=== PATIENT | male | born 1965 | race Caucasian/White ===

== ENCOUNTER 2018-06-15 16:54 | Observation (INO) ==
--- NOTE | 2018-06-15 17:31 | ED ---
HPI General Chief complaint: Alcohol Stated complaint: ETOH Time Seen by Provider: 06/15/18 16:59 History of Present Illness HPI narrative: 52-year-old male the emergency presents via EMS for evaluation of chest pain and emesis. Per EMS report the patient was complaining of significant chest pain and when they had him in the ambulance he had an episode of emesis and his chest pain resolved. Currently the patient has no complaints. The patient states that he has a history of aortic stenosis and has intermittent chest pain with shortness of breath. States that 6 months ago he was hospitalized for same and told he needed to have surgery to repair his aortic stenosis however he refused. He does admit to drinking alcohol, states he has had "a few beers" this morning. He denies any drug use. Denies any lightheadedness, dizziness, nausea, abdominal pain, diarrhea, swelling of the extremities. No other complaints. Related Data Home Medications Medication Instructions Recorded Confirmed No Known Home Medications 06/15/18 06/15/18 Allergies Allergy/AdvReac Type Severity Reaction Status Date / Time codeine Allergy Unknown Verified 06/15/18 17:00 Review of Systems ROS: all other systems reviewed are negative [facility] Medical History Medical History ETOH abuse (Acute) Social History Social History Second Hand Smoke Exposure: No Smoking Status: Never smoker Tobacco Type: Cigarettes How Often Do You Have a Drink Containing Alcohol: 4 or more times a week Recent Travel in [facility] within the Last 8 Weeks: No Recent Out of Country Travel within the Last 8 Weeks: No Substance Abuse Detail Alcohol: Substance Use Status: Active Immunization History Tetanus Immunization: <5 Years Exam Narrative Exam Narrative: GENERAL: Well-nourished and well-developed male patient in no acute distress who is nontoxic appearing. SKIN: Warm and dry. HEAD: Normocephalic and atraumatic. EYES: No injection, drainage, or hyphema noted. PERRLA. EOMI. ENT: No nasal drainage noted. Oropharynx is clear. NECK: Supple and the trachea is midline. CARDIOVASCULAR: Systolic murmur noted. Regular rate and rhythm. RESPIRATORY: Breath sounds are equal bilaterally with no accessory muscle use, wheezing, rhonchi, or crackles. GASTROINTESTINAL: Abdomen is soft, non-tender, and nondistended. MUSCULOSKELETAL: No obvious deformities, swelling, cyanosis, or ecchymosis is present throughout the upper and lower extremities. Patient has full range of motion without any signs of neurovascular compromise. Distal pulses are 2+ throughout. NEUROLOGICAL: Awake, alert, and oriented. Normal speech and gait. Cranial nerves are grossly intact. Course Initial Documented Vital Signs Temperature 98.8 F 06/15/18 17:03 Pulse Rate 80 06/15/18 17:03 Respiratory Rate 18 06/15/18 17:03 Blood Pressure 116/70 06/15/18 17:03 Pulse Oximetry 100 06/15/18 17:03 Last Documented Vital Signs Temperature 98.8 F 06/15/18 17:03 Pulse Rate 80 06/15/18 17:03 Respiratory Rate 18 06/15/18 17:03 Blood Pressure 116/70 06/15/18 17:03 Pulse Oximetry 100 06/15/18 17:03 Medical Decision Making MDM Narrative Medical decision making narrative: 52-year-old male is brought to the ED for evaluation of chest pain, emesis and alcohol intoxication. Patient is afebrile , vital signs are stable. He does report a history of chest pain and known aortic stenosis. IV access is obtained, labs of been drawn and sent. Patient is placed on cardiac telemetry and pulse oximetry monitoring. EKG shows sinus rhythm with no acute ST elevations or depressions. CBC is unremarkable. Coags are unremarkable. CMP is unremarkable. Lipase is within normal limits. EtOH is 272. Chest x-ray shows minimal patchy airspace disease in the left lung base presumably atelectasis. Troponin is less than 0.02. Patient resting comfortably in room. Will keep in chest pain center for observation. I discussed the case with my attending physician Dr. Pena who is aware of the patients history, physical examination findings, and treatment plan. Medical Screen Exam Complete: Yes Emergency Medical Condition: Yes Differential Diagnosis Differential Diagnosis: Alcohol intoxication versus electrolyte abnormality versus angina versus ACS versus gastritis Lab Data Result diagrams: 06/15/18 17:28 06/15/18 17:28 Lab Results 06/15/18 06/15/18 06/15/18 Range/Units 17:28 17:28 17:28 WBC 6.5 (4.0-11.0) th/mm3 RBC 4.33 L (4.50-5.90) mil/mm3 Hgb 13.7 (13.0-17.0) gm/dL Hct 39.5 (39.0-51.0) % MCV 91.3 (80.0-100.0) fL MCH 31.7 (27.0-34.0) pg MCHC 34.7 (32.0-36.0) % RDW 13.5 (11.6-17.2) % Plt Count 246 (150-450) th/mm3 MPV 7.9 (7.0-11.0) fL Neut % (Auto) 70.0 (16.0-70.0) % Lymph % (Auto) 23.6 (9.0-44.0) % [place] % (Auto) 5.0 (0.0-8.0) % Eos % (Auto) 0.7 (0.0-4.0) % Baso % (Auto) 0.7 (0.0-2.0) % Neut # (Auto) 4.6 (1.8-7.7) th/mm3 Lymph # (Auto) 1.5 (1.0-4.8) th/mm3 [place] # (Auto) 0.3 (0.0-0.9) th/mm3 Eos # (Auto) 0.0 (0.0-0.4) th/mm3 Baso # (Auto) 0.0 (0.0-0.2) th/mm3 WBC Differential . Differential Comment Auto diff final PT 10.3 (9.8-11.6) sec INR 1.0 Ratio APTT 24.8 (24.3-30.1) sec Sodium (136-145) meq/L Potassium (3.5-5.1) meq/L Chloride (98-107) meq/L Carbon Dioxide (21.0-32.0) meq/L Anion Gap (5-15) meq/L BUN (7-18) mg/dL Creatinine (0.60-1.30) mg/dL Estimated GFR (>89) mL/min Random Glucose (74-106) mg/dL Calcium (8.5-10.1) mg/dL Magnesium (1.5-2.5) mg/dL Total Bilirubin (0.2-1.0) mg/dL AST (15-37) U/L ALT (12-78) U/L Alkaline Phosphatase (45-117) U/L Troponin I (0.02-0.05) ng/mL Total Protein (6.4-8.2) g/dL Albumin (3.4-5.0) g/dL Lipase 125 (73-393) U/L Serum Alcohol 272 H (0-5) mg/dL 06/15/18 Range/Units 17:28 WBC (4.0-11.0) th/mm3 RBC (4.50-5.90) mil/mm3 Hgb (13.0-17.0) gm/dL Hct (39.0-51.0) % MCV (80.0-100.0) fL MCH (27.0-34.0) pg MCHC (32.0-36.0) % RDW (11.6-17.2) % Plt Count (150-450) th/mm3 MPV (7.0-11.0) fL Neut % (Auto) (16.0-70.0) % Lymph % (Auto) (9.0-44.0) % [place] % (Auto) (0.0-8.0) % Eos % (Auto) (0.0-4.0) % Baso % (Auto) (0.0-2.0) % Neut # (Auto) (1.8-7.7) th/mm3 Lymph # (Auto) (1.0-4.8) th/mm3 [place] # (Auto) (0.0-0.9) th/mm3 Eos # (Auto) (0.0-0.4) th/mm3 Baso # (Auto) (0.0-0.2) th/mm3 WBC Differential Differential Comment PT (9.8-11.6) sec INR Ratio APTT (24.3-30.1) sec Sodium 140 (136-145) meq/L Potassium 3.9 (3.5-5.1) meq/L Chloride 106 (98-107) meq/L Carbon Dioxide 26.3 (21.0-32.0) meq/L Anion Gap 8 (5-15) meq/L BUN 15 (7-18) mg/dL Creatinine 1.19 (0.60-1.30) mg/dL Estimated GFR 64 L (>89) mL/min Random Glucose 102 (74-106) mg/dL Calcium 8.0 L (8.5-10.1) mg/dL Magnesium 2.2 (1.5-2.5) mg/dL Total Bilirubin 0.3 (0.2-1.0) mg/dL AST 26 (15-37) U/L ALT 26 (12-78) U/L Alkaline Phosphatase 62 (45-117) U/L Troponin I Less than 0.02 L (0.02-0.05) ng/mL Total Protein 7.2 (6.4-8.2) g/dL Albumin 4.1 (3.4-5.0) g/dL Lipase (73-393) U/L Serum Alcohol (0-5) mg/dL Imaging Data Radiologist's impression: Chest X-Ray 06/15/18 17:26 CONCLUSION: 1. Minimal patchy airspace disease in the left lung base, presumably atelectasis. Discharge Plan Discharge Disposition Patient Disposition: 30 Still Patient Discharge Details Diagnosis: Chest pain, Alcoholic intoxication Physicians Team ED Provider: Cortez Pena ED Midlevel Provider: Carmen Cortez Rxs /Orders / Referrals /Forms Prescriptions: No Action No Known Home Medications RF: 0 Status ED Status: With Doctor
--- NOTE | 2018-06-15 17:49 | XR ---
EXAM DATE: 06/15/2018 5:26 PM EDT AGE/SEX: 52 years / Male INDICATIONS: Chest pain. CLINICAL DATA: This is the patient's initial encounter. Patient reports that signs and symptoms have been present for 1 day and indicates a pain score of 1/10. MEDICAL/SURGICAL HISTORY: None. None. COMPARISON: No prior exams available for comparison. FINDINGS: Minimal patchy airspace disease at the left lung base. The cardiomediastinal contours are unremarkabl e. Osseous structures are intact. CONCLUSION: 1. Minimal patchy airspace disease in the left lung base, presumably atelectasis. Electronically signed by: Jayson Baptiste MD 06/15/2018 5:48 PM EDT
[2018-06-15 17:58] LABS: Baso % (Auto) 0.7 % (0.0-2.0); Eos % (Auto) 0.7 % (0.0-4.0); Hematocrit 39.5 % (39.0-51.0); Hemoglobin 13.7 gm/dL (13.0-17.0); Lymph # (Auto) 1.5 th/mm3 (1.0-4.8); Lymph % (Auto) 23.6 % (9.0-44.0); Mean Corpuscular HGB Conc 34.7 % (32.0-36.0); Mean Corpuscular Hemoglobin 31.7 pg (27.0-34.0); Mean Corpuscular Volume 91.3 fL (80.0-100.0); Mean Platelet Volume 7.9 fL (7.0-11.0); Mono # (Auto) 0.3 th/mm3 (0.0-0.9); Neut # (Auto) 4.6 th/mm3 (1.8-7.7); Platelet Count 246 th/mm3 (150-450); Red Blood Count 4.33 mil/mm3 (4.50-5.90); Red Cell Distribution Width 13.5 % (11.6-17.2); White Blood Count 6.5 th/mm3 (4.0-11.0)
[2018-06-15 18:07] LABS: Activated Partial Thrombo Time 24.8 sec (24.3-30.1); Prothrombin Time 10.3 sec (9.8-11.6)
[2018-06-15 18:17] LABS: Lipase 125 U/L (73-393)
[2018-06-15 18:19] LABS: Alcohol 272 mg/dL (0-5)
[2018-06-15 18:25] LABS: Alanine Aminotransferase 26 U/L (12-78); Albumin 4.1 g/dL (3.4-5.0); Anion Gap 8 meq/L (5-15); Aspartate Aminotransferase 26 U/L (15-37); Blood Urea Nitrogen 15 mg/dL (7-18); Carbon Dioxide 26.3 meq/L (21.0-32.0); Chloride 106 meq/L (98-107); Glomerular Filtration Rate 64 mL/min (>89); Glucose,Random 102 mg/dL (74-106); Magnesium 2.2 mg/dL (1.5-2.5); Potassium 3.9 meq/L (3.5-5.1); Sodium 140 meq/L (136-145)
[2018-06-15 18:29] LABS: Alkaline Phosphatase 62 U/L (45-117); Total Protein 7.2 g/dL (6.4-8.2)
[2018-06-15] MEDS ORDERED: Acetaminophen 500 MG Tablet PO PRN (18:54)
[2018-06-15 19:43] LABS: Creatine Kinase 220 U/L (39-308)
[2018-06-15] MEDS: Sod Chloride 0.9% Inj 1,000 ML IV.CONT SCH (20:00)
[2018-06-15 23:37] LABS: Troponin I 0.02 ng/mL (0.02-0.05)
[2018-06-16 03:08] LABS: Amphetamine Screen,Urine Neg (Neg); Barbiturate Screen,Urine Neg (Neg); Cannabinoid Screen,Urine Neg (Neg); Cocaine Screen,Urine Neg (Neg)
[2018-06-16 03:16] LABS: Opiate Screen,Urine Neg (Neg)
[2018-06-16] MEDS: Sod Chloride 0.9% Inj 1,000 ML IV.CONT SCH (06:34)
[2018-06-16 08:26] VITALS: BP 134/82; RESP 16; TEMP 97.4; O2SAT 98
[2018-06-16 08:40] VITALS: PULSE 102
--- NOTE | 2018-06-16 08:42 | P.HPCA ---
History of Present Illness Primary Care Physician: UNKNOWN Chief Complaint: Chest pain History of Present Illness: This is a 52-year-old male the presents to ED with complaint of chest discomfort. States he has had issues with this over the past year to year and a half. States he was seen about 6 months ago while he was in [facility], states he had a cardiac catheterization and 2D echo. States that he was told that he has severe aortic valve stenosis and needs that repaired. He states that he refused it, he was afraid and really did not know much about it. States he wants to have it done where he has family around him to help him recover. States that the heart catheterization confirmed also severe aortic stenosis but was told that he had no heart artery blockages. States he does not want to stay or to have his valve repaired. Severe aortic valve stenosis. Denies CAD. Denies hypertension, hyperlipidemia , diabetes, and CAD. States is a lifetime non-smoker. Denies illicit drug use. Has occasional alcohol. Denies family history of CAD. - Diagnosis (1) Severe aortic stenosis (2) Chest pain Review of Systems General: Patient denies fevers, chills, and recent travel. HEENT: Patient denies headache, sore throat, difficulty swallowing. Cardiovascular: Has the chest discomfort as mentioned above. Denies sensation of heart beating rapidly or irregularly. No syncope. Denies diaphoresis. Respiratory: He gets short of breath. Denies inspirational chest discomfort. Denies coughing wheezing or hemoptysis. GI: Patient denies nausea, vomiting, diarrhea, abdominal pain, bloody stools. Musculoskeletal: Patient denies joint pain or edema. Denies calf pain or edema. Neurovascular: Patient denies numbness, tingling, weakness in extremities. Denies headache. Endocrine: Denies polyuria and polydipsia. Hematologic: Denies easy bruising. Skin: Denies rash or itching. PMFSH - History History Provided By: Patient - Medical History Medical History: Medical History (Last Updated 06/15/18 @ 17:06 by Kimberly Carlson) ETOH abuse - Tobacco History Second Hand Smoke Exposure: No Tobacco Use In Past 30 Days: No Smoking Status: Never smoker Tobacco Type: Cigarettes - Alcohol History How Often Do You Have a Drink Containing Alcohol: 4 or more times a week - Substance Use History Substance History: No History of Abuse - Substance Use Type Alcohol Status: Active - Travel History Recent Travel in the [place] Within the Last 8 Weeks: No Recent Travel Out of the Country Within the Last 8 Weeks: No - Immunization History Tetanus Immunization: <5 Years Medications and Allergies Active Medications: Active Medications Acetaminophen (Tylenol) 500 mg PO Q4H PRN PRN Reason: HEADACHE Sodium Chloride (Ns Inj) 1,000 mls @ 100 mls/hr IV.CONT .Q10H [facility] Last Admin: 06/16/18 06:34 Dose: Not Given Ondansetron HCl (Zofran Inj) 4 mg IV.PUSH Q6H PRN PRN Reason: NAUSEA Sodium Chloride (Ns Flush) 2 ml IV.FLUSH UNSCH PRN PRN Reason: FLUSH AFTER USING IV ACCESS Sodium Chloride (Ns Flush) 2 ml IV.FLUSH BID [facility] Last Admin: 06/16/18 08:08 Dose: Not Given Sodium Chloride (Ns Flush) 2 ml IV.FLUSH PRN PRN PRN Reason: FLUSH AFTER USING IV ACCESS Allergies Allergy/AdvReac Type Severity Reaction Status Date / Time codeine Allergy Unknown Verified 06/15/18 17:00 Home Medications Medication Instructions Recorded Confirmed Type No Known Home Medications 06/15/18 06/15/18 History Exam Vital signs: Vital Signs 06/15/18 17:03 06/15/18 19:00 06/15/18 22:23 Temperature 98.8 F Pulse Rate 80 73 Respiratory Rate 18 16 Blood Pressure 116/70 100/57 L Pulse Oximetry 100 94 L 95 06/16/18 00:00 06/16/18 03:43 06/16/18 04:00 Temperature 97.8 F 98.0 F Pulse Rate 81 93 H 81 Respiratory Rate 19 19 Blood Pressure 104/67 115/68 Pulse Oximetry 94 L 97 06/16/18 08:00 Temperature 97.4 F L Pulse Rate 102 H Respiratory Rate 16 Blood Pressure 134/82 Pulse Oximetry 98 Intake & Output 06/15/18 06/16/18 06/16/18 18:59 06:59 18:59 Intake Total 600 / 600 Output Total 600 / 600 Balance 0 / 0 Weight 72.575 kg 72.57 kg Intake: IV 600 / 600 NS Inj 1,000 ML @ 100 mls/hr IV 600 / 600 .CONT .Q10H [facility] Rx#:[id number] Output: Urine 600 / 600 Other: Date of Last Bowel Movement 06/15/18 Narrative: GENERAL: This is a well-nourished, well-developed patient, in no apparent distress. Patient speaks in clear complete sentences. Patient is pleasant. HEENT: Head is atraumatic and normocephalic. Neck is supple without lymphadenopathy and trachea is midline. No JVD or carotid bruits. CARDIOVASCULAR: Grade 4 systolic murmur right sternal border radiating to the neck which goes along with his history of severe aortic stenosis. Regular rate and rhythm without gallops, or rubs. RESPIRATORY: Clear to auscultation. Breath sounds equal bilaterally. No wheezes , rales, or rhonchi. Chest wall is nontender. No use of accessory muscles. GASTROINTESTINAL: Abdomen is nontender, nondistended. Abdomen soft. No obvious pulsatile mass or bruit. No CVA tenderness. Strong femoral pulses bilaterally. Normal bowel sounds in all quadrants. MUSCULOSKELETAL: Patient is moving upper and lower extremities freely. No calf tenderness or edema, no Homans sign. Strong pulses in upper and lower extremities. NEUROLOGICAL: Patient is alert and oriented. Cranial nerves 2-12 are grossly intact. No focal deficits and speech is clear. SKIN: No rash and turgor is normal. Results 06/15/18 17:28 06/15/18 17:28 Cardiac Enzymes 06/15/18 06/15/18 06/15/18 Range/Units 17:28 19:10 23:14 AST 26 (15-37) U/L Troponin I Less than 0.02 L Less than 0.02 L 0.02 (0.02-0.05) ng/mL Coagulation 06/15/18 Range/Units 17:28 PT 10.3 (9.8-11.6) sec APTT 24.8 (24.3-30.1) sec CBC 06/15/18 Range/Units 17:28 WBC 6.5 (4.0-11.0) th/mm3 RBC 4.33 L (4.50-5.90) mil/mm3 Hgb 13.7 (13.0-17.0) gm/dL Hct 39.5 (39.0-51.0) % Plt Count 246 (150-450) th/mm3 Neut # (Auto) 4.6 (1.8-7.7) th/mm3 Lymph # (Auto) 1.5 (1.0-4.8) th/mm3 [place] # (Auto) 0.3 (0.0-0.9) th/mm3 Eos # (Auto) 0.0 (0.0-0.4) th/mm3 Baso # (Auto) 0.0 (0.0-0.2) th/mm3 Comprehensive Metabolic Panel 06/15/18 Range/Units 17:28 Sodium 140 (136-145) meq/L Potassium 3.9 (3.5-5.1) meq/L Chloride 106 (98-107) meq/L Carbon Dioxide 26.3 (21.0-32.0) meq/L BUN 15 (7-18) mg/dL Creatinine 1.19 (0.60-1.30) mg/dL Calcium 8.0 L (8.5-10.1) mg/dL AST 26 (15-37) U/L ALT 26 (12-78) U/L Alkaline Phosphatase 62 (45-117) U/L Total Protein 7.2 (6.4-8.2) g/dL Albumin 4.1 (3.4-5.0) g/dL Intake and Output 06/15/18 06/16/18 06/16/18 22:59 06:59 14:59 Intake Total 600 / 600 Output Total 600 / 600 Balance 0 / 0 Intake: IV 600 / 600 NS Inj 1,000 ML @ 100 mls/hr IV 600 / 600 .CONT .Q10H [facility] Rx#:[id number] Output: Urine 600 / 600 Other: Date of Last Bowel Movement 06/15/18 Weight 72.575 kg 72.57 kg - Imaging and Cardiology Imaging: Impressions Chest X-Ray 06/15/18 17:26 CONCLUSION: 1. Minimal patchy airspace disease in the left lung base, presumably atelectasis. EKG interpretations - EKG EKG shows: sinus rhythm (EKGs are sinus rhythm with nonspecific ST-T changes.) Caprini VTE Risk Assessment Caprini VTE Risk Assessment: No/Low Risk (score <= 1) Caprini Risk Assessment Model: Point Value = 1 Point Value = 2 Point Value = 3 Point Value = 5 Age 41-60 Minor surgery BMI > 25 kg/m2 Swollen legs Varicose veins or History of unexplained or recurrent spontaneous Oral contraceptives or hormone replacement Sepsis (< 1 month) Serious lung disease, including pneumonia (< 1 month) Abnormal pulmonary function Acute myocardial infarction Congestive heart failure (< 1 month) History of inflammatory bowel disease Medical patient at bed rest Age 61-74 Arthroscopic surgery Major open surgery (> 45 min) Laparoscopic surgery (> 45 min) Malignancy Confined to bed (> 72 hours) Immobilizing plaster cast Central venous access Age >= 75 History of VTE Family history of VTE Factor V Leiden Prothrombin [id number] Lupus anticoagulant Anticardiolipin antibodies Elevated serum homocysteine Heparin-induced thrombocytopenia Other congenital or acquired thrombophilia Stroke (< 1 month) Elective arthroplasty Hip, pelvis, or leg fracture Acute spinal cord injury (< 1 month) Prophylaxis Regimen: Total Risk Factor Score Risk Level Prophylaxis Regimen 0-1 Low Early ambulation 2 Moderate Order ONE of the following: *Sequential Compression Device (SCD) *Heparin 5000 units SQ BID 3-4 Higher Order ONE of the following medications: *Heparin 5000 units SQ TID *Enoxaparin/Lovenox 40 mg SQ daily (WT < 150 kg, CrCl > 30 mL/min) *Enoxaparin/Lovenox 30 mg SQ daily (WT < 150 kg, CrCl > 10-29 mL/min) *Enoxaparin/Lovenox 30 mg SQ BID (WT < 150 kg, CrCl > 30 mL/min) AND/OR *Sequential Compression Device (SCD) 5 or more Highest Order ONE of the following medications: *Heparin 5000 units SQ TID (Preferred with Epidurals) *Enoxaparin/Lovenox 40 mg SQ daily (WT < 150 kg, CrCl > 30 mL/min) *Enoxaparin/Lovenox 30 mg SQ daily (WT < 150 kg, CrCl > 10-29 mL/min) *Enoxaparin/Lovenox 30 mg SQ BID (WT < 150 kg, CrCl > 30 mL/min) AND *Sequential Compression Device (SCD) Assessment and Plan - Assessment (1) Severe aortic stenosis Code(s): I35.0 - Nonrheumatic aortic (valve) stenosis Status: Acute (2) Chest pain Code(s): R07.9 - Chest pain, unspecified Status: Acute - Plan * Severe aortic valve stenosis: He was seen by Dr. Fernandez Burton of cardiology and chest pain center. Offered admission to have cardiovascular thoracic surgeon evaluate patient for likely repair of his aortic valve stenosis. Patient declines. Dr. Burton discussed with the patient at great length the consequences of him not having this repaired which include . Patient still chooses to be discharged and he would rather find a place near his family to have this done. He was advised again of the reports having is done as soon as possible and that he could while out having this repaired. He understands this. * Chest pain: Patient had serial cardiac enzymes and EKGs for ruling out purposes. He was seen by Dr. Fernandez Burton of cardiology and chest pain center , offered hospitalization for his aortic valve however patient has declined this. States he had a cardiac catheterization 6 months ago that revealed normal coronary arteries but that he needed valve replaced. There will be no stress testing. He will be discharged home at this time with instructions to follow-up with his surgeon as soon as possible to have his aortic valve stenosis taken care of. Patient is stable at this time. He is agreeable to this plan. H&P: Quality - VTE Deep Vein Thrombosis/Pulmonary Embolism Present on Admission: No (2) Chest pain Qualifiers: Chest pain type: unspecified Qualified Code(s): R07.9 - Chest pain, unspecified
--- NOTE | 2018-06-16 14:04 | ECG ---
Date Performed: 06/15/2018 Time Performed: 22:27:29 PTAGE: 52 years EKG: Sinus rhythm WITH OCCASIONAL SUPRAVENTRICULAR PREMATURE COMPLEXES MARKED LEFT AXIS DEVIATION RIGHT BUNDLE BRANCH BLOCK MODERATE T-WAVE ABNORMALITY, CONSIDER LATERAL ISCHEMIA ABNORMAL ECG PREVIOUS TRACING : 06/15/2018 17.38 Since previous tracing, no significant change noted DOCTOR: Fernandez Burton Interpretating Date/Time 06/16/2018 14:02:06
--- NOTE | 2018-06-16 14:05 | ECG ---
Date Performed: 06/16/2018 Time Performed: 00:30:29 PTAGE: 52 years EKG: Sinus rhythm POSSIBLE LEFT ATRIAL ENLARGEMENT RIGHT BUNDLE BRANCH BLOCK LEFT ANTERIOR FASCICULAR BLOCK MODERATE T -WAVE ABNORMALITY, CONSIDER LATERAL ISCHEMIA ABNORMAL ECG PREVIOUS TRACING : 06/15/2018 22.27 Since previous tracing, no significant change noted DOCTOR: Fernandez Burton Interpretating Date/Time 06/16/2018 14:02:41
--- NOTE | 2018-06-16 16:46 | ECG ---
Date Performed: 06/15/2018 Time Performed: 17:38:11 PTAGE: 52 years EKG: Sinus rhythm POSSIBLE LEFT ATRIAL ENLARGEMENT RIGHT BUNDLE BRANCH BLOCK LEFT ANTERIOR FASCICULAR BLOCK MODERATE T -WAVE ABNORMALITY, CONSIDER LATERAL ISCHEMIA ABNORMAL ECG NO PREVIOUS TRACING DOCTOR: Malka Almazan Interpretating Date/Time 06/16/2018 16:42:03
== END 2018-06-16 10:00 | disposition home or self-care (01) ==
LOC: NEDA 16:54 → NEPE 16:54 → NEPFCDU 22:56
PROVIDERS: ADMIT Internal Medicine Interventional Cardiology; ATTEND Internal Medicine Interventional Cardiology
DX: Z88.5 Allergy status to narcotic agent; I35.0 Nonrheumatic aortic (valve) stenosis; F17.210 Nicotine dependence, cigarettes, uncomplicated; R07.89 Other chest pain; F10.129 Alcohol abuse with intoxication, unspecified